=== PATIENT | female | born 1950 | race Caucasian/White ===

== ENCOUNTER → 2018-09-27 | Outpatient (CLI) | payer MEDICARE, OTHER ==
[~2018-09-27] MED LIST: METHACHOLINE KIT (J7674) INH ONE
--- NOTE | 2018-09-27 09:41 | PFTRPT ---
Site: 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 Review Status: Not Reviewed Pre-Bronch Post-Bronch Pred Actual %Pred Actual %Chng SPIROMETRY FVC (L) 3.45 3.33 96 3.22 -3 FEV1 (L) 2.63 2.73 103 2.61 -4 FEV1/FVC (%) 76 82 107 81 FEF 25% (L/sec) 5.11 5.33 104 4.42 -17 FEF 50% (L/sec) 3.40 3.90 114 3.80 -2 FEF 75% (L/sec) 1.03 1.10 106 0.86 -21 FEF 25-75% (L/sec) 2.18 2.92 133 2.54 -12 FEF Max (L/sec) 6.28 5.76 91 4.58 -20 FIVC (L) 2.97 2.87 -3 FIF 50% (L/sec) 3.66 3.92 107 4.51 15 FIF Max (L/sec) 3.92 4.90 24 Expiratory Time (sec) 7.12 6.32 -11 Back Extrap Vol (L) 0.10 0.09 -12 Time To FEFmax (sec) 0.078 0.106 36
== END ==
LOC: M CARPUL 08:16
PROVIDERS: ATTEND Nurse Practitioner Family
DX: R06.00 Dyspnea, unspecified (principal)
CPT/HCPCS: 94070; 95070; J7674